=== PATIENT | female | born 1995 | race Two or more races ===

== ENCOUNTER 2017-06-23 19:17 | Emergency (ER) | payer SELFPAY ==
[~2017-06-23] VITALS: Ht 154.9 cm; Wt 68.0 kg
[2017-06-23 19:25] VITALS: BP 109/68
--- NOTE | 2017-06-23 19:53 | PHYS DOC ---
Past Medical History Past Medical History: Other Additional Past Medical Histor: heart murmur Past Surgical History: No Surgical History Alcohol Use: None Drug Use: None Adult General Chief Complaint Chief Complaint: ITCHING HPI HPI Patient is a 22 year old female presents emergency department stating that she has a rash on bilateral inner thighs as well as bilateral upper arms. She states she's been having this rash for the last week. She thought that it might get better. She states that she's been taken Benadryl [id number] that it makes her tired. She states the areas itch and burn. She denies any contact with anyone with, or the weeds. She denies any new laundry detergents soaps. Patient denies any shortness of air difficulty breathing. Review of Systems Review of Systems Constitutional: Denies fever or chills [] Eyes: Denies change in visual acuity, redness, or eye pain [] HENT: Denies nasal congestion or sore throat [] Respiratory: Denies cough or shortness of breath [] Cardiovascular: No additional information not addressed in HPI [] GI: Denies abdominal pain, nausea, vomiting, bloody stools or diarrhea [] : Denies dysuria or hematuria [] Musculoskeletal: Denies back pain or joint pain [] Integument: rash denies skin lesions [] Neurologic: Denies headache, focal weakness or sensory changes [] Endocrine: Denies polyuria or polydipsia [] Allergies Allergies Allergies Coded Allergies Type Severity Reaction Last Updated Verified No Known Drug Allergies 06/23/17 No Physical Exam Physical Exam Constitutional: Well developed, well nourished, no acute distress, non-toxic appearance. [] HENT: Normocephalic, atraumatic, bilateral external ears normal, oropharynx moist, no oral exudates, nose normal. [] Eyes: PERRLA, EOMI, conjunctiva normal, no discharge. [] Neck: Normal range of motion, no tenderness, supple, no stridor. [] Cardiovascular:Heart rate regular rhythm, no murmur [] Lungs & Thorax: Bilateral breath sounds clear to auscultation [] Skin: Warm, dry, no erythema, Patient with rash noted in bilateral thighs, and upper arms. Patient with red raised rash with no drainage, patient with some areas that appear scabbed over. Back: No tenderness Extremities: No tenderness, no cyanosis, no clubbing, ROM intact, no edema. [] Neurologic: Alert and oriented X 3, normal motor function, normal sensory function, no focal deficits noted. [] Psychologic: Affect normal, judgement normal, mood normal. [] Current Patient Data Vital Signs Vital Signs Date Time Temp Pulse Resp B/P (MAP) Pulse Ox O2 Delivery O2 Flow Rate FiO2 06/23/17 19:25 98.7 87 20 98 Room Air 98.7 EKG EKG [] Radiology/Procedures Radiology/Procedures [] Course & Med Decision Making Course & Med Decision Making Pertinent Labs and Imaging studies reviewed. (See chart for details) Patient will be recommended to use Benadryl 25 mg every 6 hours to help with itching and irritation. Patient will be provided with prednisone prescription. Recommended keeping the areas cool dry. Also recommended Aveeno baths. Since symptoms to return back to emergency department as been provided. Patient agrees with discharge instructions, treatment regimens and follow-up recommendations. [] Dragon Disclaimer Dragon Disclaimer This electronic medical record was generated, in whole or in part, using a voice recognition dictation system. Departure Departure Impression: Primary Impression: Contact dermatitis Disposition: HOME, SELF-CARE Condition: STABLE Referrals: NO PCP (PCP) Patient Instructions: Contact Dermatitis, [id number] Additional Instructions: Keep the areas clean and dry. Keeping the ankle will also help with irritation. Aveeno baths may also help soothe the skin. Benadryl 25 mg every 6 hours. This medication will cause drowsiness. Will also help with the itching and burning sensation. Prednisone as prescribed. Follow-up primary care physician in the next week. Return back to emergency prior signs symptoms of become worse. Scripts Prednisone (PREDNISONE) 20 Mg Tablet 40 MG PO DAILY for 7 Days, #14 TAB Prov: ASHWIN LOW APRN 06/23/17 ASHWIN LOW APRN Jun 23, 2017 19:53
[2017-06-23] MEDS ORDERED: PRED20TA PO (19:54)
== END 2017-06-23 19:58 | disposition home or self-care (01) ==
LOC: ER 19:17
DX: L25.9 Unspecified contact dermatitis, unspecified cause (principal)
CPT/HCPCS: 99283